=== PATIENT | female | born 1955 | race Caucasian/White ===

== ENCOUNTER 2019-09-20 11:19 | Outpatient (CLI) | payer OTHER, SELFPAY ==
[2019-09-20 11:49] LABS: Basophils Absolute Auto 0.1 K/mm3 (0.0-0.1); Basophils Percent Auto 0.7 % (0.2-1.2); Eosinophils Absolute Auto 0.3 K/mm3 (0-0.3); Eosinophils Percent Auto 3.1 % (0-4.4); Hematocrit 40.8 % (37.0-47.0); Hemoglobin 13.3 g/dL (12.0-15.0); Immature Granulocyte Absolute 0.02 K/mm3 (0.00-0.031); Immature Granulocyte Percent A 0.2 % (0-0.5); Lymphocytes Absolute Auto 2.67 K/mm3 (0.9-3.2); Lymphocytes Percent Auto 30.3 % (18.3-44.2); Mean Corpuscular HGB Conc 32.6 g/dl (32-36); Mean Corpuscular Volume 92.1 fl (80-100); Mean Platelet Volume 10.5 fl (7.4-10.4); Monocytes Absolute Auto 0.7 K/mm3 (0.1-0.6); Monocytes Percent Auto 7.8 % (2.6-8.5); Neutrophils Absolute Auto 5.1 K/mm3 (1.3-6.7); Neutrophils Percent Auto 57.9 % (45.5-73.1); Platelet Count Result 271 k/mm3 (150-375); Red Blood Count 4.43 M/mm3 (4.2-5.4); Red Cell Distribution Width 12.3 % (11.5-14.5); White Blood Count 8.8 K/mm3 (4.5-10.0)
[2019-09-20 12:01] LABS: Alanine Aminotransferase 49 U/L (4-35); Albumin Level 4.5 g/dL (3.5-5.1); Alkaline Phosphatase 41 U/L (38-126); Anion Gap 12.5 mmol/L (7-16); Aspartate Amino Transferase 35 U/L (14-36); Bilirubin,Total 0.3 mg/dL (0.2-1.3); Blood Urea Nitrogen 12 mg/dL (7-17); Calcium 9.3 mg/dL (8.4-10.2); Carbon Dioxide 29 mmol/L (22-30); Chloride 101 mmol/L (98-107); Cholesterol 177 mg/dL (0-200); Estimated Glomerular Filt Rate > 60; Glucose 147 mg/dL (65-105); HDL Direct 48 mg/dL; Potassium 4.5 mmol/L (3.4-5.0); Sodium 138 mmol/L (137-145); Triglycerides 125 mg/dL (<150)
[2019-09-20 12:01] LABS: Add Urine Microscopic? YES; Appearance Urine Clear (Clear); Bilirubin Urine Negative (Negative); Blood Urine Negative (Negative); Color Urine Straw (Yellow); Glucose Urine UA Negative (Negative); Ketones Urine Negative (Negative); Leukocyte Esterase Ur 3+ LEU/UL (NEGATIVE); Nitrate Urine Negative (Negative); Protein Urine Negative (Negative); RBC Urine 0-2 /hpf (0-2); Specific Grav Ur 1.009 (1.001-1.035); Squamous Epithelial Cell Urine Rare /hpf (Few); Urobilinogen Urine Negative mg/dL (<2.0); WBC Urine 16-20 /hpf (0-3)
[2019-09-20 12:03] LABS: Hemoglobin A1C 7.2 % (<5.7)
[2019-09-20 12:13] LABS: LDL Cholesterol Direct 113 mg/dL
[2019-09-20 12:33] LABS: Thyroid Stimulating Hormone 0.963 uIU/mL (0.465-4.680)
[2019-09-20 13:09] LABS: Iron 115 ug/dL (37-170)
[2019-09-20 13:15] LABS: Folic Acid > 20.0 ng/mL (2.76->20)
[2019-09-20 13:18] LABS: Percent Iron Saturation 33 % (20-50)
== END 2019-09-20 11:20 | disposition home or self-care (01) ==
PROVIDERS: PCP Family Medicine; Visit Provider Physician Assistant
DX: E11.9 Type 2 diabetes mellitus without complications (principal); I10 Essential (primary) hypertension; E78.5 Hyperlipidemia, unspecified
CPT/HCPCS: 36415; 80053; 80061; 81001; 82607; 82746; 83036; 83540; 83550; 84443; 85025

== ENCOUNTER 2019-12-20 10:04 | Outpatient (CLI) | payer MEDICARE, OTHER, SELFPAY ==
--- NOTE | ~2019-12-20 | MM_ITS ---
EXAMINATION: MM screening [facility] BI w annia HISTORY: Screening TECHNIQUE: Craniocaudal and mediolateral oblique 3-D tomosynthesis images were obtained and synthetic 2-D images were generated. CAD analysis was submitted and interpreted. COMPARISON: Comparison to multiple prior studies sequentially, with oldest reviewed study dated 05/11. BREAST PARENCHYMAL COMPOSITION: There are scattered areas of fibroglandular density. FINDINGS: There is no evidence of suspicious mass, calcification, or architectural distortion to sugg est malignancy in either breast. There has been no suspicious interval change. IMPRESSION: 1. No mammographic evidence of malignancy. 2. Recommend routine screening mammography in one year. BI-RADS Category 1: Negative Reviewed, dictated and finalized at location A. KING MACHINE OPERATOR
--- NOTE | ~2019-12-20 | DEXA_ITS ---
Bone Density Report Name: Neetu Johnson Age: 64 Sex: Female Ethnicity: White Date of : 1955 Indication: postmenopausal; height loss; hysterectomy; Referring Provider: Nidia Presley Study: Bone densitometry was performed. Exam Date: December 20, 2019 Accession number: [id number] Bone Density: Region BMD T-score Z-score Classification AP Spine (L1-L4) 1.023 -0.2 1.6 Normal Femoral Neck (Left) 0.713 -1.2 0.3 Osteopenia Total Hip (Left) 0.915 -0.2 1.0 Normal Total Hip Bilateral Avg 0.928 -0.1 1.1 Normal Femoral Neck (Right) 0.731 -1.1 0.4 Osteopenia Total Hip (Right) 0.940 0.0 1.2 Normal World Health Organization criteria for BMD impression classify patients as: Normal (T-score at or above -1.0), Osteopenia (T-score between -1.0 and -2.5), or Osteoporosis (T-score at or below -2.5). 10-year Fracture Risk(1): Major Osteoporotic Fracture 7.9% Hip Fracture 0.6% Reported Risk Factors: [place] (), Neck BMD=0.713, BMI=32.6 (1) FRAX(R) Version 3.08. Fracture probability calculated for an untreated patient. Fracture probability may be lower if the patient has received treatment. Clinical Information Provided by Patient: Has used the following medications: Calcium Has the following medical conditions: Hysterectomy Patient maximum height was 64 Menopause Age: 49 No regular weight bearing exercise Drinks caffeinated beverages Onset of menses at age 14 Number of children 2 Impression: The patient has low bone mass, based on the Left Femoral Neck T-score. The patient has an estimated ten-year risk of hip fracture of 0.6% and an estimated ten-year risk of major fracture of 7.9%, based on the WHO FRAX algorithm. Discussion: BONE DENSITY IS LOW AT ONE OR MORE SKELETAL SITES. This patient's lowest T-score is low at one or more skeletal sites. It meets the World Health Organization's (WHO) criteria for ?low bone mass? (T-score between -1.0 and -2.5). The patient's 10-year risk of fracture as calculated by FRAX is less than the threshold where pharmacological therapy is recommended by the National Osteoporosis Foundation (NOF). However, all treatment decisions require clinical judgment and consideration of individual patient factors, including patient preferences, comorbidities, previous drug use, risk factors not captured in the FRAX model (e.g., frailty, falls, vitamin D deficiency, increased bone turnover, interval significant decline in bone density) and possible under or overestimation of fracture risk by FRAX. The patient should follow a healthful lifestyle (good nutrition with adequate calcium and vitamin D, and appropriate weight-bearing exercise). Follow-Up: Consider repeating this study in 2 to 3 years to reassess this patient's status, or sooner if there is some new clinical indication.
== END 2019-12-20 10:05 | disposition home or self-care (01) ==
PROVIDERS: PCP Family Medicine; Visit Provider Physician Assistant
DX: Z12.31 Encounter for screening mammogram for malignant neoplasm of breast (principal); M85.852 Other specified disorders of bone density and structure, left thigh; M85.851 Other specified disorders of bone density and structure, right thigh
CPT/HCPCS: 77063; 77067; 77080

== ENCOUNTER 2021-01-03 14:43 | Outpatient (CLI) | payer MEDICARE, OTHER, SELFPAY ==
--- NOTE | ~2021-01-03 | MM_ITS ---
EXAMINATION: MM screening [facility] BI w annia HISTORY: Screening mammogram TECHNIQUE: Craniocaudal and mediolateral oblique 3-D tomosynthesis images were obtained and synthetic 2-D images were generated. CAD analysis was submitted and interpreted. COMPARISON: 12/20/2019, 12/13/2018 BREAST PARENCHYMAL COMPOSITION: There are scattered areas of fibroglandular density. FINDINGS: There is no evidence of suspicious mass, calcification, or architectural distortion to sugg est malignancy in either breast. There has been no suspicious interval change. IMPRESSION: 1. No mammographic evidence of malignancy. 2. Recommend routine screening mammography in one year. BI-RADS Category 1: Negative Reviewed, dictated and finalized at location A. UNITY SERVICE DIRECTOR
== END 2021-01-03 14:44 | disposition home or self-care (01) ==
PROVIDERS: PCP Family Medicine; Visit Provider Family Medicine
DX: Z12.31 Encounter for screening mammogram for malignant neoplasm of breast (principal)
CPT/HCPCS: 77063; 77067

== ENCOUNTER 2022-02-13 14:56 | Outpatient (CLI) | payer MEDICARE, OTHER, SELFPAY ==
--- NOTE | ~2022-02-13 | MM_ITS ---
EXAMINATION: MM screening [facility] BI w annia HISTORY: Screening mammogram TECHNIQUE: Craniocaudal and mediolateral oblique 3-D tomosynthesis images were obtained and synthetic 2-D images were generated. CAD analysis was submitted and interpreted. COMPARISON: 12/2020, 01/06/2020, 12/05/2018 screening mammogram examinations BREAST PARENCHYMAL COMPOSITION: There are scattered areas of fibroglandular density. FINDINGS: There is no evidence of suspicious mass, calcification, or architectural distortion to sugg est malignancy in either breast. There has been no suspicious interval change. IMPRESSION: 1. No mammographic evidence of malignancy. 2. Recommend routine screening mammography in one year. BI-RADS Category 1: Negative Reviewed, dictated and finalized at location A. ERCIAL ACCOUNT EXECUTIVE
--- NOTE | ~2022-02-13 | DEXA_ITS ---
Bone Density Report Name: KATHERINE ESPINOSA Age: 66 Sex: Female Ethnicity: White Date of : 1955 Indication: postmenopausal; screening for osteoporosis; height loss; hysterectomy; Referring Provider: LEIGHANN BOLAÑOS Study: Bone densitometry was performed. Exam Date: February 13, 2022 Accession number: [id number] Bone Density: Region BMD T-score Z-score Classification AP Spine(L1-L4) 1.058 0.1 2.0 Normal Femoral Neck (Left) 0.685 -1.5 0.2 Osteopenia Total Hip (Left) 0.907 -0.3 1.1 Normal Femoral Neck (Right) 0.750 -0.9 0.7 Normal Total Hip (Right) 0.953 0.1 1.4 Normal Total Hip Mean 0.930 -0.1 1.3 Normal World Health Organization criteria for BMD impression classify patients as: Normal (T-score at or above -1.0), Osteopenia (T-score between -1.0 and -2.5), or Osteoporosis (T-score at or below -2.5). 10-year Fracture Risk(1): Major Osteoporotic Fracture 8.7% Hip Fracture 0.9% Reported Risk Factors: [place] (), Neck BMD=0.685, BMI=32.9 (1) FRAX(R) Version 3.08. Fracture probability calculated for an untreated patient. Fracture probability may be lower if the patient has received treatment. Previous Exams: Region Exam Age BMD T-score BMD Change BMD Change Date g/cm2 vs Baseline vs Previous AP Spine (L1-L4) 02/13/2022 66 1.058 0.1 0.035 (3.4%)* 0.035 (3.4%)* 12/20/2019 64 1.023 -0.2 Total Hip(Left) 02/13/2022 66 0.907 -0.3 -0.009 (-1.0%) -0.009 (-1.0%) 12/20/2019 64 0.915 -0.2 Total Hip(Right) 02/13/2022 66 0.953 0.1 0.013 (1.4%) 0.013 (1.4%) 12/20/2019 64 0.940 0.0 *Denotes significance at 95% confidence level, LSC for AP Spine = 0.022 g/cm2, LSC for Total Hip = 0.027 g/cm2 Clinical Information Provided by Patient: Has used the following medications: Calcium Has the following medical conditions: Hysterectomy Patient maximum height was 64 Menopause Age: 49 No regular weight bearing exercise Drinks caffeinated beverages Onset of menses at age 13 Number of children 2 Missed period for more than 6 months in a row Impression: The patient has low bone mass, based on the Left Femoral Neck T-score. The patient has an estimated ten-year risk of hip fracture of 0.9% and an estimated ten-year risk of major fracture of 8.7%, based on the WHO FRAX algorithm. No significant bone loss was observed. Discussion: BONE DENSITY IS LOW AT ONE OR MORE SKELETAL SITES. This patient's low
== END 2022-02-13 14:57 | disposition home or self-care (01) ==
LOC: ANHIMG 14:58
PROVIDERS: PCP Family Medicine; Visit Provider Family Medicine
DX: Z12.31 Encounter for screening mammogram for malignant neoplasm of breast (principal); M85.852 Other specified disorders of bone density and structure, left thigh; Z78.0 Asymptomatic menopausal state
CPT/HCPCS: 77063; 77067; 77080

== ENCOUNTER 2022-11-11 12:18 | Outpatient (CLI) | payer MEDICARE, OTHER, SELFPAY ==
[2022-11-11 13:04] LABS: Basophils Absolute Auto 0.1 K/mm3 (0.0-0.1); Basophils Percent Auto 0.8 % (0.2-1.2); Eosinophils Absolute Auto 0.2 K/mm3 (0-0.3); Eosinophils Percent Auto 2.9 % (0-4.4); Hematocrit 38.6 % (37.0-47.0); Hemoglobin 12.4 g/dL (12.0-15.0); Immature Granulocyte Absolute 0.02 K/mm3 (0.00-0.031); Immature Granulocyte Percent A 0.3 % (0-0.5); Lymphocytes Absolute Auto 2.21 K/mm3 (0.9-3.2); Lymphocytes Percent Auto 28.7 % (18.3-44.2); Mean Corpuscular HGB Conc 32.1 g/dl (32-36); Mean Corpuscular Hemoglobin 29.3 pg (26-34); Mean Corpuscular Volume 91.3 fl (80-100); Mean Platelet Volume 10.7 fl (7.4-10.4); Monocytes Absolute Auto 0.6 K/mm3 (0.1-0.6); Monocytes Percent Auto 8.1 % (2.6-8.5); Neutrophils Absolute Auto 4.6 K/mm3 (1.3-6.7); Neutrophils Percent Auto 59.2 % (45.5-73.1); Platelet Count Result 320 k/mm3 (150-375); Red Blood Count 4.23 M/mm3 (4.2-5.4); White Blood Count 7.7 K/mm3 (4.5-10.0)
[2022-11-11 13:12] LABS: Alanine Aminotransferase 19 U/L (6-35); Albumin Level 4.6 g/dL (3.5-5.1); Alkaline Phosphatase 48 U/L (38-126); Anion Gap 8 mmol/L (8-16); Aspartate Amino Transferase 25 U/L (14-36); Bilirubin,Total 0.6 mg/dL (0.2-1.3); Blood Urea Nitrogen 8 mg/dL (7-17); Calcium 9.4 mg/dL (8.4-10.2); Carbon Dioxide 28 mmol/L (22-30); Chloride 100 mmol/L (98-107); Estimated Glomerular Filt Rate > 60; Glucose 104 mg/dL (65-110); Potassium 3.9 mmol/L (3.4-5.0); Sodium 136 mmol/L (137-145)
[2022-11-11 13:45] LABS: Hemoglobin A1C 6.3 % (<5.7)
== END 2022-11-11 12:19 | disposition home or self-care (01) ==
PROVIDERS: PCP Family Medicine; Visit Provider Family Medicine
DX: E11.9 Type 2 diabetes mellitus without complications (principal); R53.83 Other fatigue
CPT/HCPCS: 36415; 80053; 83036; 85025

== ENCOUNTER 2023-06-25 09:28 | Outpatient (CLI) | payer MEDICARE, OTHER, SELFPAY ==
--- NOTE | ~2023-06-25 | MM_ITS ---
EXAMINATION: MM screening ziggy BI w annia HISTORY: Screening mammogram TECHNIQUE: Craniocaudal and mediolateral oblique 3-D tomosynthesis images were obtained and synthetic 2-D images were generated. CAD analysis was submitted and interpreted. COMPARISON: 02/13/2022, 01/03/2021 bilateral screening mammogram examinations BREAST PARENCHYMAL COMPOSITION: There are scattered areas of fibroglandular density. FINDINGS: Stable bilateral benign appearing posterior upper-outer quadrant intramammary lymph nodes. There is no evidence of suspicious mass, calcification, or architectural distortion to suggest malign tray in either breast. There has been no suspicious interval change. IMPRESSION: 1. No mammographic evidence of malignancy. 2. Recommend routine screening mammography in one year. BI-RADS Category 1: Negative Reviewed, dictated and finalized at location B.
== END 2023-06-25 09:29 | disposition home or self-care (01) ==
PROVIDERS: PCP Family Medicine; Visit Provider Family Medicine
DX: Z12.31 Encounter for screening mammogram for malignant neoplasm of breast (principal)
CPT/HCPCS: 36415; 77063; 77067; 80053; 80061; 82043; 83036

== ENCOUNTER 2023-06-25 10:09 | Outpatient (CLI) | payer MEDICARE, OTHER, SELFPAY ==
[2023-06-25 11:24] LABS: Alanine Aminotransferase 15 U/L (6-35); Albumin Level 4.9 g/dL (3.5-5.1); Alkaline Phosphatase 49 U/L (38-126); Anion Gap 10 mmol/L (4-12); Aspartate Amino Transferase 22 U/L (14-36); Bilirubin,Total 0.5 mg/dL (0.2-1.3); Blood Urea Nitrogen 10 mg/dL (7-17); Calcium 9.9 mg/dL (8.4-10.2); Carbon Dioxide 26 mmol/L (22-30); Chloride 103 mmol/L (98-107); Cholesterol 162 mg/dL (0-200); Estimated Glomerular Filt Rate > 60; Glucose 115 mg/dL (65-110); HDL Direct 61 mg/dL; Potassium 4.1 mmol/L (3.4-5.0); Sodium 139 mmol/L (137-145); Triglycerides 88 mg/dL (<150)
[2023-06-25 11:27] LABS: Hemoglobin A1C 6.3 % (<5.7)
[2023-06-25 11:35] LABS: LDL Cholesterol Direct 82 mg/dL
[2023-06-25 12:52] LABS: Creatinine Urine 22.5 mg/dL
[2023-06-25 12:56] LABS: MALB Creatinine Ratio < 26.7 mg/g (0-30); Microalbumin Urine Random < 6.0 mg/L (0-16.7)
== END 2023-06-25 10:10 | disposition home or self-care (01) ==
LOC: ANHLAB 10:13
PROVIDERS: PCP Family Medicine; Visit Provider Family Medicine
DX: E78.2 Mixed hyperlipidemia (principal); E11.9 Type 2 diabetes mellitus without complications
CPT/HCPCS: 36415; 80053; 80061; 82043; 83036

== ENCOUNTER 2023-06-30 05:52 | Day surgery (SDC) | payer MEDICARE, OTHER, SELFPAY ==
[2023-05-18 09:13] VITALS: BMI 29.5
--- NOTE | 2023-06-26 08:32 | PM.HPGS ---
History of Present Illness History of Present Illness Consent: Risks, benefits, and alternatives have been discussed and questions answered. Patient agrees to proceed with procedure. Chief complaint: Personal history of colon polyps Narrative: Neetu Johnson is a 67 year old female who is here today for 5 year follow-up because of a history of polyps. Review of Systems Review of Systems: All systems reviewed & are unremarkable except as noted in HPI and below PMFSH Past Medical History Medical History Antibiotic prophylaxis for dental procedure indicated due to prior joint replacement BMI 33.0-33.9,adult Breast cancer screening Colon cancer screening Obesity (BMI 30-39.9) Osteoarthritis, multiple sites Primary hypertension Rotator cuff arthropathy of right shoulder Torn meniscus Surgical History Surgical History History of delivery History of colonoscopy History of hysterectomy History of total knee arthroplasty Family History Family History Other Carcinoma of colon Diabetes mellitus Family history of arthritis Family history of coronary artery disease Hypertension Social History Social History Smoking status: Never smoker Alcohol intake: current Drinks per week: 2 Substance use: never Substance use type: does not use Lack of Transportation: No Lack of Food: Never True Current Housing: I Have Housing Concerned About Future Housing: No Difficulty Paying Gas/Electric Bills: No Difficulty Paying for Meds: No Currently Unemployed: No Education: High School Diploma/GED Difficulty w/ Childcare or Family Care: No Living arrangements: with family Occupation/Education: retired Gender identity (if verbalized by the patient): Female Sexual Orientation (if Verbalized by the Patient): Straight or Heterosexual Meds Home Medications and Allergies Home Medications Medication Instructions Recorded Confirmed Type cfznwniw-pvum-jmvt 8 mg-folic 400 1 tablet PO DAILY #30 tabs 12/17/18 06/30/23 Rx mcg-K 50 mcg-lutein 300 mcg tablet (Centrum Silver Women) calcium 600 mg-D3 800 unit-mag11 1 tablet PO DAILY 11/07/21 06/30/23 History 50 yj-rrnj-fwjhtp-velma-s.borat tablet (Caltrate 600-D Plus Minerals) blood-glucose meter (Accu-Chek #1 ea 12/25/21 05/14/23 Rx Guide Glucose Meter) coenzyme Z66-eksjlwt E 100 mg-100 1 cap PO .twice weekly 01/16/22 06/30/23 History unit capsule blood sugar diagnostic (Accu-Chek #100 ea 03/12/22 05/14/23 Rx Guide test strips) lancets (Accu-Chek Softclix #200 ea 03/13/22 05/14/23 Rx Lancets) semaglutide 0.25 mg or 0.5 mg (2 0.5 mg (0.374 mL) subcut WEEKLY 07/01/22 06/30/23 Rx mg/1.5 mL) subcutaneous pen #1.5 mL injector (Ozempic) rosuvastatin 5 mg tablet (Crestor) 5 mg PO DAILY #90 tabs 09/02/22 06/30/23 Rx losartan 25 mg tablet See Rx Instructions .Route 03/19/23 06/30/23 Rx .COMPLEX #90 tabs metformin 500 mg tablet,extended 1,000 mg PO BID #360 tabs 03/19/23 06/30/23 Rx release 24 hr Allergies Allergy/AdvReac Type Severity Reaction Status Date / Time lisinopril AdvReac Severe Cough Verified 06/30/23 06:40 Ikgnfgf-UAD-TuJ Reductase AdvReac Unknown Unknown Verified 06/30/23 06:40 Inhibitor [Ktpavuz-Yib-Voa Reductase Inhibitor] Exam Resp: Auscultation: clear to auscultation bilaterally Cardio: Rate: regular rate Rhythm: regular rhythm GI: GI Palp: Yes Soft to palpation and No Tenderness to palpation present (GI) Assessment and Plan Assessment and plan (1) Colon cancer screening: Code(s): Z12.11 - Encounter for screening for malignant neoplasm of colon Status: Acute Assessment and Plan: Colonoscopy with possible bi
[2023-06-30 06:41] VITALS: BP 130/74; PULSE 84; RESP 16; TEMP 37.4; O2SAT 98
[2023-06-30 06:51] LABS: Glucose Point of Care 125 mg/dl (65-105)
--- NOTE | 2023-06-30 07:17 | WPDANESEPPF ---
Anes - Initial Pre Proc Eval Procedure: Operation Date: 06/30/23 08:00 Proposed Procedures p Diagnostic Colonoscopy - Jono Escalona MD Date/Time: 06/30/23 07:17 Surgeon: Jono Escalona MD Pre Op Diagnosis: Personal history of colon polyps Patient Data Age: 67 Gender: F Height: 1.6 m Weight: 74.8 kg Last Vital Signs Temp 37.4 C 06/30/23 06:41 Pulse 84 06/30/23 06:41 Resp 16 06/30/23 06:41 BP 130/74 06/30/23 06:41 Pulse Ox 98 06/30/23 06:41 O2 Del Method Room Air 06/30/23 06:41 Allergies Allergy/AdvReac Type Severity Reaction Status Date / Time lisinopril AdvReac Severe Cough Verified 06/30/23 06:40 Pvbwcyc-UQL-DgJ Reductase AdvReac Unknown Unknown Verified 06/30/23 06:40 Inhibitor [Xjnqvay-Guf-Nxk Reductase Inhibitor] Home Medications Medication Instructions Recorded Confirmed Type fbnxfnwd-iizr-gdcf 8 mg-folic 400 1 tablet PO DAILY #30 tabs 12/17/18 06/30/23 Rx mcg-K 50 mcg-lutein 300 mcg tablet (Centrum Silver Women) calcium 600 mg-D3 800 unit-mag11 1 tablet PO DAILY 11/07/21 06/30/23 History 50 vn-bien-fbnbms-velma-s.borat tablet (Caltrate 600-D Plus Minerals) blood-glucose meter (Accu-Chek #1 ea 12/25/21 05/14/23 Rx Guide Glucose Meter) coenzyme Y20-msztbng E 100 mg-100 1 cap PO .twice weekly 01/16/22 06/30/23 History unit capsule blood sugar diagnostic (Accu-Chek #100 ea 03/12/22 05/14/23 Rx Guide test strips) lancets (Accu-Chek Softclix #200 ea 03/13/22 05/14/23 Rx Lancets) semaglutide 0.25 mg or 0.5 mg (2 0.5 mg (0.374 mL) subcut WEEKLY 07/01/22 06/30/23 Rx mg/1.5 mL) subcutaneous pen #1.5 mL injector (Ozempic) rosuvastatin 5 mg tablet (Crestor) 5 mg PO DAILY #90 tabs 09/02/22 06/30/23 Rx losartan 25 mg tablet See Rx Instructions .Route 03/19/23 06/30/23 Rx .COMPLEX #90 tabs metformin 500 mg tablet,extended 1,000 mg PO BID #360 tabs 03/19/23 06/30/23 Rx release 24 hr Laboratory Tests 06/30/23 06:44 POC Capillary Glucose 125 H mg/dl (65-105) Patient hx anesthesia problems: none Family hx anesthesia problems: none Results Review: All pre-operative results and documents have been reviewed as part of the pre-operative evaluation. [facility] Past Medical History Medical History Antibiotic prophylaxis for dental procedure indicated due to prior joint replacement BMI 33.0-33.9,adult Breast cancer screening Colon cancer screening Obesity (BMI 30-39.9) Osteoarthritis, multiple sites Primary hypertension Rotator cuff arthropathy of right shoulder Torn meniscus Surgical History Surgical History History of delivery History of colonoscopy History of hysterectomy History of total knee arthroplasty Family History Family History Other Carcinoma of colon Diabetes mellitus Family history of arthritis Family history of coronary artery disease Hypertension Social History Social History Smoking status: Never smoker Alcohol intake: current Drinks per week: 2 Substance use: never Substance use type: does not use Lack of Transportation: No Lack of Food: Never True Current Housing: I Have Housing Concerned About Future Housing: No Difficulty Paying Gas/Electric Bills: No Difficulty Paying for Meds: No Currently Unemployed: No Education: High School Diploma/GED Difficulty w/ Childcare or Family Care: No Living arrangements: with family Occupation/Education: retired Gender identity (if verbalized by the patient): Female Sexual Orientation (if Verbalized by the Patient): Straight or Heterosexual Anes - Eval Final PreProcedure Day of Procedure 06/30/23 07:17 Patient weight: overweight Heart: regular rate
[2023-06-30] MEDS: LACTATED RINGERS 1,000 ML 150 ML IV CONT (07:55)
[2023-06-30 08:26] VITALS: BP 130/107; PULSE 67; RESP 16; O2SAT 98
[2023-06-30 08:36] VITALS: BP 123/69; PULSE 66; RESP 15; O2SAT 99
[2023-06-30 08:46] VITALS: BP 137/81; PULSE 66; RESP 15; O2SAT 99
--- NOTE | 2023-06-30 09:02 | WPDANESPN ---
Anes - Prog Note Post-Op Date/Time: 06/30/23 09:02 Cardiovascular status: normal Respiratory status: normal Airway patency: baseline Mental status: baseline Post-Op hydration status: normal Vital Signs: Last Vital Signs Temp 37.4 C 06/30/23 06:41 Pulse 66 06/30/23 08:36 Resp 15 06/30/23 08:36 BP 123/69 06/30/23 08:36 Pulse Ox 99 06/30/23 08:36 O2 Del Method Room Air 06/30/23 08:36 Pain Score (VAS): 0 I/O: Intake & Output 06/29/23 06/30/23 06/30/23 23:59 07:59 15:59 Intake Total 300 Balance 300 06/30/23 06:44 POC Capillary Glucose 125 H Patient Feedback: Patient satisfied with anesthetic care.
== END 2023-06-30 09:08 | disposition home or self-care (01) ==
PROVIDERS: PCP Family Medicine; Visit Provider Internal Medicine Gastroenterology
PROC: 0DJD8ZZ Inspection of Lower Intestinal Tract, Via Natural or Artificial Opening Endoscopic (ICD-10-PCS; CPT 45378; principal; 2023-06-30 08:00)
DX: K62.1 Rectal polyp (principal); K64.8 Other hemorrhoids
CPT/HCPCS: 45385

== ENCOUNTER 2023-06-30 09:23 | Outpatient (NON) | payer MEDICARE, OTHER, SELFPAY | END 2023-06-30 09:24 | disposition home or self-care (01) | PROVIDERS: PCP Family Medicine; Visit Provider Internal Medicine Gastroenterology | DX: Z12.11 Encounter for screening for malignant neoplasm of colon (principal) | CPT/HCPCS: 88305 ==

== ENCOUNTER 2024-07-27 15:12 | Outpatient (CLI) | payer MEDICARE, SELFPAY ==
--- NOTE | ~2024-07-27 | MM_ITS ---
EXAMINATION: MM screening ziggy BI w annia HISTORY: Screening TECHNIQUE: Craniocaudal and mediolateral oblique 3-D tomosynthesis images were obtained and synthetic 2-D images were generated. CAD analysis was submitted and interpreted. COMPARISON: Comparison to multiple prior studies sequentially, with oldest reviewed study dated 07/2017. BREAST PARENCHYMAL COMPOSITION: Not dense: There are scattered areas of fibroglandular density. FINDINGS: There is no evidence of suspicious mass, calcification, or architectural distortion to sugg est malignancy in either breast. There has been no suspicious interval change. IMPRESSION: 1. No mammographic evidence of malignancy. 2. Recommend routine screening mammography in one year. BI-RADS Category 1: Negative Reviewed, dictated and finalized at location B.
== END 2024-07-27 15:13 | disposition home or self-care (01) ==
LOC: ANHIMG 15:14
PROVIDERS: PCP Family Medicine; Visit Provider Family Medicine
DX: Z12.31 Encounter for screening mammogram for malignant neoplasm of breast (principal)
CPT/HCPCS: 77063; 77067

== ENCOUNTER 2025-01-06 00:23 | Day surgery (SDC) | payer MEDICARE, SELFPAY ==
[2024-12-20 14:45] VITALS: BMI 29.2
--- OUTSIDE RECORDS SUMMARY | 2025-01-06 00:26 | XMS_ITS | Clinical Summary ---
Author Organization [facility] Address [address] [place] [address] Care Team Providers Care Commissioning Specialist Name Role Phone Tereza Espinoza MD Primary Care Provider [phone] Encounters Date Type Department Care Team Description 10/10/2024 12:15 PM CDT - 10/10/2024 11:59 PM CDT Hospital Encounter [facility] [address] [place] [address] Tanika Leigh PA-C Discharge Disposition: Home or Self Care (Routine Discharge) 10/10/2024 Orders Only [facility] [address] [place] [address] Tanika Leigh PA-C 10/10/2024 Travel from Last 3 Months Social History Tobacco Use Types Packs/Day Years Used Date Smoking Tobacco: Never Assessed Comments Unknown Sex and Gender Information Value Date Recorded Sex Assigned at Not on file Legal Sex Female 5:59 PM CDT Gender Identity Not on file Sexual Orientation Not on file Plan of Treatment Health Maintenance Due Date Last Done Comments Colorectal Cancer Screening Colonoscopy (10 Years) 1955 Kidney Health Evaluation 1955 Diabetes: Retinopathy Eye Exam 1972 Hepatitis C 1972 Pneumococcal Vaccine: 50+ Years (1 of 2 - PCV) 1973 Mammogram Screening 1994 Zoster Vaccines (1 of 2) 2004 Annual Medicare Wellness Visit 10/31/2019 Dexa Scan (General) 10/31/2019 COVID-19 Vaccine ( season) 2024 10/14/2020, 09/17/2020 Influenza Adult (#1) 2024 01/02/2021, 12/06/2019, 12/28/2018, Additional history exists Hemoglobin A1C 04/12/2025 10/10/2024, 120 04/2023, 07/04/2022, Additional history exists Lipid Panel 10/10/2025 10/10/2024, 120 04/2023, 07/04/2022, Additional history exists DTaP, Tdap and Td Vaccines (2 - Td or Tdap) 05/16/2027 05/15/2017 RSV Immunization or 60+ Years (1 - 1-dose 75+ series) 2029 Hepatitis A Vaccines Aged Out No long er eligible based on patient's age to complete this topic Meningococcal B Vaccine Aged Out No l onger eligible based on patient's age to complete this topic Meningococcal Vaccine Aged Out No jed doug eligible based on patient's age to complete this topic RSV Immunizations Under 20 Months Aged Out No longer eligible based on patient's age to complete this topic Procedures Procedure Name Priority Date/Time Associated Diagnosis Comments HC THYROID STIMULATING HORM Routine 10/10/2024 12:23 PM CDT Diabetes mellitus ([facility]) Essential hypertension Hyperlipemia Fatigue HC LIPID PANEL Routine 10/10/2024 12:23 PM CDT Diabetes mellitus ([facility]HCC) Essential hypertension Hyperlipemia Fatigue HC COMPREHENSIVE METABOL PANEL Routine 10/10/2024 12:23 PM CDT Diabetes mellitus ([facility]HCC) Essential hypertension Hyperlipemia Fatigue HC CBC AUTO W/AUTO DIFF Routine 10/10/2024 12:23 PM CDT Diabetes mellitus ([facility] H[facility]/HCC) Essential hypertension Hyperlipemia Fatigue HC T4 FREE Routine 10/10/2024 12:23 PM CDT Diabetes mellitus ([facility]HCC) Essential hypertension Hyperlipemia Fatigue HC HEMOGLOBIN FRACT QN Routine 12:23 PM CDT Diabetes mellitus ([facility] H[facility]/HCC) Essential hypertension Hyperlipemia Fatigue from Last 3 Months Results * (ABNORMAL) HEMOGLOBIN, GLYCOSYLATED (10/10/2024 12:23 PM CDT) HGB A1C 6.7(H) <5.7 % 10/11/2024 10:31 AM CDT [facility] Comment: INCREASED RISK OF DIABETES <5.7% NON-DIABETES 5.7-6.4% INCREASED RISK FOR FUTURE DIABETES > OR = 6.5 CONSISTENT WITH DIABETES STANDARDS OF MEDICAL CARE IN DIABETES-2010 DIABETES CARE, 33(SUPP 1): S1-S61,2010 ESTIMATED AVG GLUCOSE 146 mg/dL 10/11/2024 10:31 AM CDT [facility] 10/10/2024 12:2 3 PM CDT us Tanika Leigh PA-C LABORATORY Final Resu lt [facility] [address] [place] [address], [place] [phone] * (ABNORMAL) COMPREHENSIVE METABOLIC PANEL (10/10/2024 12:23 PM CDT) GLUCOSE 106(H) 70 - 99 MG/DL 10/10/2024 2:16 PM CDT [facility] BUN 8 7 - 18 MG/DL 10/10/2024 2:16 PM CDT [facility] CREATININE S/P/B 0.55 0.55 - 1.02 MG/DL 10/10/2024 2:16 PM CDT [facility] SODIUM S/P/B 138 136 - 145 MMOL/L 10/10/2024 2:16 PM CDT [facility] POTASSIUM S/P/B 4.2 3.5 - 5.1 MMOL/L 10/10/2024 2:16 PM T [facility] CHLORIDE S/P/B 101 100 - 108 MMOL/L 10/10/2024 2:16 PM [facility] CO2 28.6 21 - 32 MMOL/L 10/10/2024 2:16 PM T [facility] CALCIUM S/P/B 9.3 8.5 - 10.1 MG/DL 10/10/2024 2:16 PM T [facility] BILIRUBIN TOTAL S/P/B 0.4 0.2 - 1.2 MG/DL 10/10/2024 2:16 PM [facility] TOTAL PROTEIN S/P/B 7.9 6.4 - 8.2 G/DL 10/10/2024 2:16 PM [facility] ALBUMIN S/P/B 4.1 3.4 - 5.0 G/DL 10/10/2024 2:16 PM [facility] AST 18 15 - 37 U/L 10/10/2024 2:16 PM [facility] ALT 22 14 - 55 U/L 10/10/2024 2:16 PM T [facility] ALKALINE PHOSPHATASE S/P/B 48(L) 50 - 136 U/L 10/10/2024 2:16 PM [facility] ANION GAP 8.4 5 - 15 MMOL/L 10/10/2024 2:16 PM [facility] BUN CREATININE RATIO 14.5 6 - 26 10/10/2024 2:16 PM [facility] A/G RATIO 1.1 1.0 - 2.0 RATIO 10/10/2024 2:16 PM T [facility] GFR ESTIMATE >90 >90 ML/MIN/1.7 3 M2 10/10/2024 2:16 PM CDT [facility] Comment: NOTE: eGFR is not calculated for patients <18 years of age. This is an estimated GFR calculation using the new CKD EPI creatinine equation without race and so does not require a correction factor for race. This estimated GFR should not be used for calculating drug doses. 10/10/2024 12:2 3 PM CDT us Tanika Leigh PA-C LABORATORY Final Resu lt [facility] [address] [place] [id number], * (ABNORMAL) LIPID PANEL (10/10/2024 12:23 PM CDT) CHOLESTEROL 184 <200.0 MG/DL 10/10/2024 2:16 PM CDT [facility] TRIGLYCERIDES 67 <150 MG/DL 10/10/2024 2:16 PM CDT [facility] HDL 69 >40.0 MG/DL 10/10/2024 2:16 PM T [facility] LDL (CALCULATED) 102(H) <100 MG/DL 10/10/2024 2:16 PM CDT [facility] Comment:CALCULATED USING THE FRIEDEWALD EQUATION NON HDL CHOLESTEROL 115 <130 MG/DL 10/10/2024 2:16 PM CDT [facility] CHOL/HDL RATIO 2.7 0.0 - 4.5 10/10/2024 2:16 PM T [facility] VLDL CALCULATION 13 5 - 55 MG/DL 10/10/2024 2:16 PM CDT [facility] LIPID INTERPRETATION 10/10/2024 2:16 PM CDT [facility] Comment: NIH CONCENSUS REPORT RECOMMENDATIONS: ADULT CHILD LOW RISK: CHOLESTEROL <200 <170 TRIGLYCERIDE <150 --- HDL >=60 --- LDL <100 <110 BORDERLINE: CHOLESTEROL 200-239 170-199 TRIGLYCERIDE 150-199 --- HDL 40-59 --- LDL 100-159 110-129 HIGH RISK: CHOLESTEROL >=240 >=200 TRIGLYCERIDE >=200 --- HDL <40 --- LDL >=160 >=130 10/10/2024 12:2 3 PM CDT us Tanika Leigh PA-C LABORATORY Final Resu lt [facility] [address] [place] [address], * (ABNORMAL) CBC W/DIFF AUTOMATED (10/10/2024 12:23 PM CDT) WBC 8.47 4.4 - 11.0 x10'3/uL 10/10/2024 12:59 PM CDT [facility] RBC 4.28(L) 4.50 - 5.10 x10'6/uL 10/10/2024 12:59 PM CDT [facility] HGB 12.8 12.3 - 15.3 G/DL 10/10/2024 12:59 PM CDT [facility] HCT 38.7 35.9 - 44.6 % 10/10/2024 12:59 PM CDT [facility] MCV 90.4 80.0 - 96.0 FL 10/10/2024 12:59 PM CDT [facility] MCH 29.9 25.3 - 30.9 PG 10/10/2024 12:59 PM CDT [facility] MCHC 33.1 31.0 - 34.1 G/DL 10/10/2024 12:59 PM CDT [facility] RDW 12.8 12.4 - 15.1 % 10/10/2024 12:59 PM CDT [facility] PLT 355(H) 151 - 353 x10'3/uL 10/10/2024 12:59 PM CDT [facility] MPV 10.3 9.6 - 12.0 FL 10/10/2024 12:59 PM CDT [facility] RBC MORPHOLOGY NORMAL 10/10/2024 12:59 PM CDT [facility] PLT MORPH. NORMAL 10/10/2024 12:59 PM CDT [facility] WBC MORPHOLOGY NORMAL 10/10/2024 12:59 PM CDT [facility] LYMPHOCYTES % 33.5 15.8 - 45.0 % 10/10/2024 12:59 PM CDT [facility] NEUTROPHILS % 54.2 42.1 - 71.9 % 10/10/2024 12:59 PM CDT [facility] MONOCYTES % 7.0 5.7 - 12.5 % 10/10/2024 12:59 PM T [facility] EOSINOPHILS 4.5 0.0 - 5.6 % 10/10/2024 12:59 PM CDT [facility] BASOPHILS 0.7 0.0 - 1.3 % 10/10/2024 12:59 PM CDT [facility] ABS. NEUTROPHILS 4.59 1.40 - 6.00 x10'3/uL 10/10/2024 12:59 PM CDT [facility] IMMATURE GRANS % 0.1 0.0 - 0.5 % 10/10/2024 12:59 PM CDT [facility] ABS. LYMPHOCYTES 2.84 0.80 - 4.70 x10'3/uL 10/10/2024 12:59 PM CDT [facility] 10/10/2024 12:2 3 PM CDT Tanika Leigh PA-C LABORATORY Final Resu lt Performing Organization Address [facility]/ZIP Co de Phone Number [facility] [address] [place] [address], [place] [phone] * THYROXINE, FREE (FT4) (10/10/2024 12:23 PM CDT) FREE T4 0.88 0.76 - 1.46 NG/DL 10/10/2024 2:16 PM CDT [facility] 10/10/2024 12:2 3 PM CDT Tanika Leigh PA-C LABORATORY Final Resu lt Performing Organization Address [facility] Co de Phone Number [facility] [address] [place] [address], [place] [phone] * THYROID STIM HORMONE TSH (10/10/2024 12:23 PM CDT) TSH 1.155 0.358 - 3.74 uIU/ML 10/10/2024 2:16 PM CDT [facility] Comment: HIGH DOSES OF BIOTIN MAY INTERFERE WITH THIS TEST RESULT. CORRELATION TO CLINICAL HISTORY AND PRESENTATION RECOMMENDED. 10/10/2024 12:2 3 PM CDT Tanika Leigh PA-C LABORATORY Final Resu lt Performing Organization Address [facility]/ZIP Co de Phone Number [facility] [address] [place] [address], [place] [phone] from Last 3 Months Insurance Care Teams Commissioning Specialist Relationship Specialty Start Date End Date Tereza Espinoza MD [address] [place] [address] PCP - General FAMILY PRACTICE 10/23/21
--- OUTSIDE RECORDS SUMMARY | 2025-01-06 00:26 | XMS_ITS | Encounter Summary ---
Author Organization [facility] Address [address] [place] [address] Care Team Providers Care Adult Secondary Education Instructor Name Role Phone Tereza Espinoza MD Primary Care Provider [phone] Encounter Details Date Type Department Care Team (Late st Contact Info) Description 12/10/2015 Abstract [facility] CONVERSION [address] [place] [address] , Generic ConversionMD Social History Tobacco Use Types Packs/Day Years Used Date Smoking Tobacco: Never Assessed Comments Unknown Sex and Gender Information Value Date Recorded Sex Assigned at Not on file Legal Sex Female 5:59 PM CDT Gender Identity Not on file Sexual Orientation Not on file documented as of this encounter Plan of Treatment Not on file documented as of this encounter Visit Diagnoses Not on filedocumented in this encounter Care Teams Adult Secondary Education Instructor Relationship Specialty Start Date End Date Tereza Espinoza MD [address] [place] [address] PCP - General FAMILY PRACTICE 10/23/21 documented as of this encounter
[2025-01-06 12:55] VITALS: BP 157/86; PULSE 71; RESP 16; TEMP 36.2; O2SAT 98; BMI 29.2
[2025-01-06] MEDS: LACTATED RINGERS 1,000 ML 150 ML IV CONT (13:08)
--- NOTE | 2025-01-06 14:03 | WPDANESEPPF ---
Anes - Initial Pre Proc Eval Procedure: Operation Date: 01/06/25 14:00 Proposed Procedures p Screening Colonoscopy - Den Coughlin MD Date/Time: 01/06/25 14:03 Surgeon: Den Coughlin MD Pre Op Diagnosis: Personal history of colon polyps, unspecified Patient Data Age: 69 Gender: F Height: 1.6 m Weight: 74.9 kg Last Vital Signs Temp 97.1 F L 01/06/25 12:55 Pulse 71 01/06/25 12:55 Resp 16 01/06/25 12:55 BP 157/86 H 01/06/25 12:55 Pulse Ox 98 01/06/25 12:55 O2 Del Method Room Air 01/06/25 12:55 Allergies Allergy/AdvReac Type Severity Reaction Status Date / Time lisinopril AdvReac Severe Cough Verified 01/06/25 12:50 Nikqamr-QBL-WmC Reductase AdvReac Unknown Unknown Verified 01/06/25 12:50 Inhibitor (Hmhxrsk-Ice-Pux Reductase Inhibitor) Home Medications ?Medication ?Instructions ?Recorded ?Confirmed ?Type osulddaq-vjgi-jcir 8 mg-folic 400 1 tablet PO DAILY #30 tabs 12/17/18 01/06/25 Rx mcg-K 50 mcg-lutein 300 mcg tablet (Centrum Silver Women) calcium 600 mg-D3 800 unit-mag11 1 tablet PO DAILY 11/07/21 01/06/25 History 50 zy-wtxz-paztnf-velma-s.borat tablet (Caltrate 600-D Plus Minerals) blood-glucose meter (Accu-Chek #1 ea 12/25/21 10/13/24 Rx Guide Glucose Meter) coenzyme Z84-zldrrqb E 100 mg-100 1 cap PO .twice weekly 01/16/22 01/06/25 History unit capsule blood sugar diagnostic (Accu-Chek #100 ea 03/12/22 10/13/24 Rx Guide test strips) lancets (Accu-Chek Softclix #200 ea 03/13/22 10/13/24 Rx Lancets) semaglutide 0.25 mg or 0.5 mg (2 0.5 mg (0.374 mL) subcut WEEKLY 07/01/22 01/06/25 Rx mg/1.5 mL) subcutaneous pen #1.5 mL injector (Ozempic) rosuvastatin 5 mg tablet (Crestor) 5 mg PO DAILY #90 tabs 01/27/24 01/06/25 Rx amoxicillin 500 mg capsule See Rx Instructions PO .COMPLEX 03/18/24 12/20/24 Rx #12 caps losartan 25 mg tablet See Rx Instructions .Route 03/24/24 01/06/25 Rx .COMPLEX #90 tabs metformin 500 mg tablet,extended 1,000 mg (2 x 500 mg) PO BID #360 09/20/24 01/06/25 Rx release 24 hr tabs acyclovir 5 % topical ointment 1 applic topical ONCE PRN cold 10/10/24 12/20/24 Rx (Zovirax) sores #15 grams Laboratory Tests 01/06/25 13:02 POC Capillary Glucose 116 H mg/dl (65-105) Patient hx anesthesia problems: none Family hx anesthesia problems: none Results Review: All pre-operative results and documents have been reviewed as part of the pre-operative evaluation. [facility] Past Medical History Medical History Antibiotic prophylaxis for dental procedure indicated due to prior joint replacement Obesity (BMI 30-39.9) Colon cancer screening Breast cancer screening Osteoarthritis, multiple sites Primary hypertension BMI 33.0-33.9,adult Rotator cuff arthropathy of right shoulder Torn meniscus Surgical History Surgical History History of hysterectomy History of delivery History of colonoscopy History of total knee arthroplasty Family History Family History Other Carcinoma of colon Diabetes mellitus Family history of arthritis Family history of coronary artery disease Hypertension Social History Social History Smoking status: Never smoker Alcohol intake: current Drinks per week: 2 Substance use: never Substance use type: does not use Lack of Transportation: No Lack of Food: Never True Current Housing: I Have Housing Concerned About Future Housing: No Difficulty Paying Gas/Electric Bills: No Difficulty Paying for Meds: No Currently Unemployed: No Education: High School Diploma/GED Difficulty w/ Childcare or Family Care: No Living arrangements: with family Occupation/Education: retired Gender identity (if verbalized by the patient): Female Sexual Orientation (if Verbalized by the Patient): Straight or Heterosexual Anes - Eval Final PreProcedure Day of Procedure 01/06/25 14:03 Patient weight: overweight Lungs: normal air movement Airway: Mallampati scale class II Neurological: alert and oriented Last oral intake: >/= 8 hours ASA classification: III Emergent: no Anesthetic plan: proceed Anesthesia type and monitoring: general GIVS and standard monitoring Results Review: All pre-operative results and documents have been reviewed as part of the pre-operative evaluation. HTN, hyperlipidemia, DM, good ex, no cp or sob. Informed Consent: The patient's anesthetic plan and its attendant risks and benefits were discussed with the patient/family/POA. Questions were solicited and answers provided to the satisfaction of the patient/family/POA.
--- NOTE | 2025-01-06 14:12 | PM.HPGS ---
History of Present Illness History of Present Illness Consent: Risks, benefits, and alternatives have been discussed and questions answered. Patient agrees to proceed with procedure. Chief complaint: Personal history of colon polyps, unspecified Narrative: Neetu Johnson is a 69 year old female here for colonoscopy last 2023 with polyp but also had poor prep Review of Systems Review of Systems: All systems reviewed & are unremarkable except as noted in HPI and below PMFSH Past Medical History Medical History (Updated 01/06/25 @ 14:16 by Den Coughlin MD) Adenomatous colon polyp Antibiotic prophylaxis for dental procedure indicated due to prior joint replacement Obesity (BMI 30-39.9) Colon cancer screening Breast cancer screening Osteoarthritis, multiple sites Primary hypertension BMI 33.0-33.9,adult Rotator cuff arthropathy of right shoulder Torn meniscus Surgical History Surgical History History of hysterectomy History of delivery History of colonoscopy History of total knee arthroplasty Family History Family History Other Carcinoma of colon Diabetes mellitus Family history of arthritis Family history of coronary artery disease Hypertension Social History Social History Smoking status: Never smoker Alcohol intake: current Drinks per week: 2 Substance use: never Substance use type: does not use Lack of Transportation: No Lack of Food: Never True Current Housing: I Have Housing Concerned About Future Housing: No Difficulty Paying Gas/Electric Bills: No Difficulty Paying for Meds: No Currently Unemployed: No Education: High School Diploma/GED Difficulty w/ Childcare or Family Care: No Living arrangements: with family Occupation/Education: retired Gender identity (if verbalized by the patient): Female Sexual Orientation (if Verbalized by the Patient): Straight or Heterosexual Meds Home Medications and Allergies Home Medications ?Medication ?Instructions ?Recorded ?Confirmed ?Type arjbdawz-yzvj-labo 8 mg-folic 400 1 tablet PO DAILY #30 tabs 12/17/18 01/06/25 Rx mcg-K 50 mcg-lutein 300 mcg tablet (Centrum Silver Women) calcium 600 mg-D3 800 unit-mag11 1 tablet PO DAILY 11/07/21 01/06/25 History 49 yx-ketu-fetoxn-velma-s.borat tablet (Caltrate 600-D Plus Minerals) blood-glucose meter (Accu-Chek #1 ea 12/25/21 10/13/24 Rx Guide Glucose Meter) coenzyme E34-hxqqjke E 100 mg-100 1 cap PO .twice weekly 01/16/22 01/06/25 History unit capsule blood sugar diagnostic (Accu-Chek #100 ea 03/12/22 10/13/24 Rx Guide test strips) lancets (Accu-Chek Softclix #200 ea 03/13/22 10/13/24 Rx Lancets) semaglutide 0.25 mg or 0.5 mg (2 0.5 mg (0.374 mL) subcut WEEKLY 07/01/22 01/06/25 Rx mg/1.5 mL) subcutaneous pen #1.5 mL injector (Ozempic) rosuvastatin 5 mg tablet (Crestor) 5 mg PO DAILY #90 tabs 01/27/24 01/06/25 Rx amoxicillin 500 mg capsule See Rx Instructions PO .COMPLEX 03/18/24 12/20/24 Rx #12 caps losartan 25 mg tablet See Rx Instructions .Route 03/24/24 01/06/25 Rx .COMPLEX #90 tabs metformin 500 mg tablet,extended 1,000 mg (2 x 500 mg) PO BID #360 09/20/24 01/06/25 Rx release 24 hr tabs acyclovir 5 % topical ointment 1 applic topical ONCE PRN cold 10/10/24 12/20/24 Rx (Zovirax) sores #15 grams Allergies Allergy/AdvReac Type Severity Reaction Status Date / Time lisinopril AdvReac Severe Cough Verified 01/06/25 12:50 Jrladri-GMC-RsY Reductase AdvReac Unknown Unknown Verified 01/06/25 12:50 Inhibitor (Opmgjcy-Buy-Qby Reductase Inhibitor) Vital Signs Vital Signs - 24 hr 01/06/25 12:55 Temperature 97.1 F L Pulse Rate 71 Respiratory Rate 16 Blood Pressure 157/86 H Pulse Oximetry 98 Oxygen Delivery Room Air Exam Const: General: comfortable and no acute distress HENMT: Face/Nose/Sinus: Normal nares present Eyes: General: appearance normal, both eyes and all related structures Neck: Neck: no JVD Resp: Auscultation: clear to auscultation bilaterally Cardio: Rate: regular rate Rhythm: regular rhythm GI: Inspection: non-distended GI Palp: Yes Soft to palpation Skin: General skin exam: normal color Extrem: General: normal to inspection Psych: Mental Status: mental status grossly normal Assessment and Plan Assessment and plan (1) Adenomatous colon polyp: Code(s): D12.6 - Benign neoplasm of colon, unspecified Status: Acute Assessment and Plan: colonoscopy
[2025-01-06 14:34] VITALS: BP 108/59; PULSE 72; RESP 18; O2SAT 99
[2025-01-06 14:44] VITALS: BP 110/58; PULSE 70; RESP 17; O2SAT 98
[2025-01-06 14:54] VITALS: BP 149/77; PULSE 75; RESP 22; O2SAT 98
--- NOTE | 2025-01-09 07:57 | S_PTH ---
PATIENT: Neetu Johnson LOC: [facility] Resendiz#:[id number] AGE/SX: 69/F ROOM: RE01/06/[address]: Den Coughlin MD : 1955 BED: DIS: 01/06/2025 SPEC #: [id number] RECD: 01/09/25 08:47 STATUS: CLEMENTE REDotty #: [id number] ROXY: 01/09/25 07:[address]: Den Coughlin DEPT: [facility] Surgical RECD BY: Ambar Soni ENTERED: 01/09/25 08:47 SP TYPE: Surgical OTHR DR: Tanika Leigh PA-C Tissues: A - Colon Polypectomy Procedures: Hematoxylin and Eosin Stain Gross and Microscopic Level 4
== END 2025-01-06 15:02 | disposition home or self-care (01) ==
PROVIDERS: PCP Student in an Organized Health Care Education/Training Program; Referring Provider Internal Medicine Gastroenterology; Visit Provider Internal Medicine Gastroenterology
PROC: 0DJD8ZZ Inspection of Lower Intestinal Tract, Via Natural or Artificial Opening Endoscopic (ICD-10-PCS; CPT 45378; principal; 2025-01-06 14:00)
DX: Z09 Encounter for follow-up examination after completed treatment for conditions other than malignant neoplasm (principal); D12.3 Benign neoplasm of transverse colon; K57.30 Diverticulosis of large intestine without perforation or abscess without bleeding; K64.8 Other hemorrhoids
CPT/HCPCS: 45380; 82948; 88305; J2003; J2704; J7120